=== PATIENT | male | born 1980 | race Caucasian/White ===

== ENCOUNTER 2019-02-24 14:30 | Outpatient (AMBR) | payer MEDICAID, SELFPAY ==
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
--- NOTE | 2019-02-24 15:13 | PT.ODAYNRPT ---
PT Outpatient Daily Note Date of Service: February 24, 2019 OP Daily Note Visit Reasons: pain in shoulder Outpatient Physical Therapy Treatment Date: 02/24/19 Subjective: Pt's shoulder feels the same. Pt continues to have pain limiting his ability to perform ADLs Objective: Please see flow chart for list of ther ex performed Assessment: tolerate exercises performed; cues to correct shoulder rows to decrease elbow extension Plan: Continue with PT Length of Time (minutes) of Treatment: 30 Minutes Office Procedures PT Procedures PT Date of Service: 02/21/19 OP PT Eval Mod Complex 30 minutes: Yes PT Procedures PT Date of Service: 02/24/19 Therapeutic Exercise 30 minutes: Yes
== END 2019-02-27 23:59 | disposition home or self-care (01) ==
PROVIDERS: PCP Family Medicine; Referring Provider Family Medicine
DX: M25.511 Pain in right shoulder (principal)
CPT/HCPCS: 97110; 97162